=== PATIENT | female | born 1965 | race Caucasian/White ===

== ENCOUNTER → 2021-01-31 | Outpatient (CLI) | payer SELFPAY ==
[~2021-01-31] MED LIST: ADDERALL20 MG PO; AMPHETAMINE SAL20 M1 PO; ATIVAN0.5 MG PO; CELEXA20 M1 PO; CELEXA20 MG PO; CEPHALEXIN500 M1 PO; CLEOCIN HCL300 MG PO; LAMICTAL 100MG100 MG PO; NORCO 325 MG-51 TA1 PO; NORCO 325 MG-51 TAB PO; PERCOCET 325 MG1 TAB PO; SYNTHROID0.075 MG/T PO; SYNTHROID0.1 MG PO; VIBRAMYCIN100 MG PO; ZOFRAN ODT8 M1 PO
== END ==
LOC: LAB 11:51
DX: Z20.822 Contact with and (suspected) exposure to COVID-19 (principal)

== ENCOUNTER → 2021-04-02 | Outpatient (CLI) | payer OTHER | LOC: LAB 11:06 | DX: R76.8 Other specified abnormal immunological findings in serum (principal); Z86.19 Personal history of other infectious and parasitic diseases ==

== ENCOUNTER → 2021-04-16 | Outpatient (CLI) | payer OTHER | LOC: LAB 12:33 | DX: R19.7 Diarrhea, unspecified (principal) ==

== ENCOUNTER → 2021-04-17 | Outpatient (CLI) | payer OTHER ==
[~2021-04-17] MED LIST changes: +CELEXA 20MG20 MG/TA1 PO; +LEVOTHYROXIN0.088 MG PO; +PROTONIX TR40 M1 PO; +VISTARIL50 M1 PO
== END ==
LOC: LAB 08:39
DX: R19.7 Diarrhea, unspecified (principal)

== ENCOUNTER 2021-05-05 13:37 | Emergency (ER) | payer OTHER ==
[~2021-05-05] VITALS: Ht 162.6 cm; Wt 65.9 kg
[~2021-05-05 13:37] MED LIST changes: -CELEXA 20MG20 MG/TA1 PO; -LEVOTHYROXIN0.088 MG PO; -PROTONIX TR40 M1 PO; -VISTARIL50 M1 PO
[2021-05-05] MEDS ORDERED: VISTARIL50 M1 PO (14:05)
[2021-05-05] MEDS ORDERED: CELEXA 20MG20 MG/TA1 PO (14:05)
[2021-05-05] MEDS ORDERED: LEVOTHYROXIN0.088 MG PO (14:06)
[2021-05-05 14:18] LABS: BASO # 0.03 K/mm3 (0.02-0.10); EOS % 2.2 % (1.0-5.0); HEMATOCRIT 44.1 % (37.0-47.0); HEMOGLOBIN 15.5 g/dL (12.5-16.0); LYMPH# 2.11 K/mm3 (1.50-4.00); MEAN CELL VOLUME 86 fl (78-100); MEAN CORPUSCULAR HEMOGLOBIN 30 pg (27-31); MEAN CORPUSCULAR HGB CONC 35 g/dL (33-37); MEAN PLATELET VOLUME 10.1 fl (7.4-10.4); MONO # 0.49 K/mm3 (0.20-0.80); NEU # 6.39 K/mm3 (1.40-6.50); PLATELET COUNT 175 K/mm3 (130-400); RED BLOOD COUNT 5.11 M/mm3 (4.10-5.30); RED CELL DISTRIBUTION WIDTH 12.1 % (11.5-14.5); WHITE BLOOD COUNT 9.2 K/mm3 (4.8-10.8)
[2021-05-05 14:29] LABS: ALBUMIN 4.4 g/dL (3.5-5.0)
[2021-05-05 14:30] LABS: POTASSIUM 3.7 mmol/L (3.5-5.1)
[2021-05-05 14:31] LABS: CALCIUM 9.7 mg/dL (8.3-10.5)
[2021-05-05 14:32] LABS: TOTAL PROTEIN 7.8 g/dL (6.4-8.3)
[2021-05-05 15:21] LABS: URINE WBC 0 /hpf (0-3)
[2021-05-05 15:32] LABS: URINE APPEARANCE CLEAR; URINE BILIRUBIN NEGATIVE (NEGATIVE); URINE BLOOD TRACE (NEGATIVE); URINE COLOR YELLOW; URINE GLUCOSE NEGATIVE (NEGATIVE); URINE KETONE NEGATIVE (NEGATIVE); URINE LEUKOCYTE ESTERASE NEGATIVE (NEGATIVE); URINE MUCUS PRESENT (NOT PRESENT); URINE NITRATE NEGATIVE (NEGATIVE); URINE PROTEIN(semi-quant) TRACE (NEGATIVE); URINE UROBILINOGEN NORMAL (NORMAL)
[2021-05-05 15:39] LABS: TOTAL BILIRUBIN 0.4 mg/dL (0.2-1.2)
[2021-05-05 17:15] VITALS: BP 107/69
[2021-05-05] MEDS ORDERED: PROTONIX TR40 M1 PO ×2 (17:20→17:21)
== END 2021-05-05 17:32 | disposition home or self-care (01) ==
LOC: ED 13:37
PROVIDERS: Nurse Practitioner
DX: R19.5 Other fecal abnormalities (principal); R14.0 Abdominal distension (gaseous); Z90.710 Acquired absence of both cervix and uterus; Z90.49 Acquired absence of other specified parts of digestive tract
CPT/HCPCS: Q9967

== ENCOUNTER → 2021-05-25 | Day surgery (SDC) | payer OTHER ==
[~2021-05-25] MED LIST changes: +CELEXA 20MG20 MG/TA1 PO; +LEVOTHYROXIN0.088 MG PO; +PROTONIX TR40 M1 PO; +VISTARIL50 M1 PO
== END | disposition home or self-care (01) ==
LOC: MSO 08:46
DX: R10.32 Left lower quadrant pain (principal); K52.9 Noninfective gastroenteritis and colitis, unspecified; R19.5 Other fecal abnormalities; Z80.1 Family history of malignant neoplasm of trachea, bronchus and lung
CPT/HCPCS: 00813; J2704; J3010; J7120

== ENCOUNTER → 2022-03-30 | Outpatient (CLI) | payer OTHER | LOC: MAMMO 09:11 | DX: Z12.31 Encounter for screening mammogram for malignant neoplasm of breast (principal) ==

== ENCOUNTER 2022-04-13 18:59 | Emergency (ER) | payer OTHER ==
[~2022-04-13] VITALS: Ht 162.6 cm; Wt 63.2 kg
[2022-04-13 20:10] LABS: EOS # 0.08 K/mm3 (0.04-0.40); EOS % 0.8 % (1.0-5.0); HEMATOCRIT 48.2 % (37.0-47.0); HEMOGLOBIN 17.1 g/dL (12.5-16.0); MEAN CELL VOLUME 85 fl (78-100); MEAN CORPUSCULAR HEMOGLOBIN 30 pg (27-31); MEAN CORPUSCULAR HGB CONC 36 g/dL (33-37); MEAN PLATELET VOLUME 10.6 fl (7.4-10.4); MONO # 0.48 K/mm3 (0.20-0.80); NEU # 9.44 K/mm3 (1.40-6.50); PLATELET COUNT 161 K/mm3 (130-400); RED BLOOD COUNT 5.65 M/mm3 (4.10-5.30); RED CELL DISTRIBUTION WIDTH 11.7 % (11.5-14.5); WHITE BLOOD COUNT 10.6 K/mm3 (4.8-10.8)
[2022-04-13 20:25] LABS: ALBUMIN 4.8 g/dL (3.5-5.0); POTASSIUM 4.2 mmol/L (3.5-5.1); SODIUM 139 mmol/L (136-145)
[2022-04-13 20:27] LABS: CALCIUM 10.6 mg/dL (8.3-10.5)
[2022-04-13 20:28] LABS: GLUCOSE 127 mg/dL (65-105); TOTAL PROTEIN 8.5 g/dL (6.4-8.3)
[2022-04-13 20:29] LABS: CARBON DIOXIDE 20 mmol/L (22-29)
[2022-04-13 20:30] LABS: TOTAL BILIRUBIN 0.6 mg/dL (0.2-1.2)
[2022-04-13 20:33] LABS: AST-SGOT 70 U/L (5-34)
[2022-04-13 20:34] LABS: ALT/SGPT 78 U/L (0-55)
[2022-04-13 20:35] LABS: LIPASE 21 U/L (8-78)
[2022-04-13 20:46] LABS: TROPONIN-I < 0.030 ng/mL (<0.030)
[2022-04-13] MEDS ORDERED: ZOFRAN ODT4 MG PO (21:14)
[2022-04-13 21:38] VITALS: BP 119/88
== END 2022-04-13 21:39 | disposition home or self-care (01) ==
LOC: ED 18:59
PROVIDERS: Physician Assistant
DX: K52.9 Noninfective gastroenteritis and colitis, unspecified (principal); R74.8 Abnormal levels of other serum enzymes; Z20.822 Contact with and (suspected) exposure to COVID-19
CPT/HCPCS: J2405; J7030

== ENCOUNTER → 2022-06-03 | Outpatient (CLI) | payer OTHER ==
[~2022-06-03] MED LIST changes: +ZOFRAN ODT4 MG PO
[2022-06-03 11:11] LABS: ALBUMIN 4.3 g/dL (3.5-5.0); POTASSIUM 4.9 mmol/L (3.5-5.1)
[2022-06-03 11:12] LABS: CALCIUM 9.8 mg/dL (8.3-10.5)
[2022-06-03 11:13] LABS: TOTAL PROTEIN 7.8 g/dL (6.4-8.3)
[2022-06-03 11:14] LABS: BASO # 0.02 K/mm3 (0.02-0.10); EOS # 0.13 K/mm3 (0.04-0.40); EOS % 1.6 % (1.0-5.0); HEMATOCRIT 43.1 % (37.0-47.0); HEMOGLOBIN 14.2 g/dL (12.5-16.0); LYMPH# 1.78 K/mm3 (1.50-4.00); MEAN CELL VOLUME 90 fl (78-100); MEAN CORPUSCULAR HEMOGLOBIN 30 pg (27-31); MEAN CORPUSCULAR HGB CONC 33 g/dL (33-37); MEAN PLATELET VOLUME 10.2 fl (7.4-10.4); MONO # 0.47 K/mm3 (0.20-0.80); NEU # 5.58 K/mm3 (1.40-6.50); PLATELET COUNT 177 K/mm3 (130-400); RED BLOOD COUNT 4.78 M/mm3 (4.10-5.30); RED CELL DISTRIBUTION WIDTH 13.1 % (11.5-14.5)
[2022-06-03 11:15] LABS: TOTAL BILIRUBIN 0.2 mg/dL (0.2-1.2)
== END ==
LOC: LAB 10:32
PROVIDERS: Nurse Practitioner Family
DX: R07.81 Pleurodynia (principal); R53.81 Other malaise

== ENCOUNTER → 2022-06-10 | Outpatient (CLI) | payer OTHER ==
[2022-06-10 10:32] LABS: BASO # 0.04 K/mm3 (0.02-0.10); EOS # 0.18 K/mm3 (0.04-0.40); EOS % 2.4 % (1.0-5.0); HEMATOCRIT 42.5 % (37.0-47.0); HEMOGLOBIN 13.8 g/dL (12.5-16.0); LYMPH# 2.17 K/mm3 (1.50-4.00); MEAN CELL VOLUME 91 fl (78-100); MEAN CORPUSCULAR HEMOGLOBIN 30 pg (27-31); MEAN CORPUSCULAR HGB CONC 33 g/dL (33-37); MEAN PLATELET VOLUME 10.5 fl (7.4-10.4); MONO # 0.47 K/mm3 (0.20-0.80); NEU # 4.51 K/mm3 (1.40-6.50); PLATELET COUNT 187 K/mm3 (130-400); RED BLOOD COUNT 4.67 M/mm3 (4.10-5.30); WHITE BLOOD COUNT 7.4 K/mm3 (4.8-10.8)
[2022-06-10 10:36] LABS: ALBUMIN 4.1 g/dL (3.5-5.0); POTASSIUM 4.6 mmol/L (3.5-5.1)
[2022-06-10 10:37] LABS: CALCIUM 9.8 mg/dL (8.3-10.5)
[2022-06-10 10:39] LABS: TOTAL PROTEIN 7.4 g/dL (6.4-8.3)
[2022-06-10 10:40] LABS: TOTAL BILIRUBIN 0.6 mg/dL (0.2-1.2)
== END ==
LOC: LAB 10:11
PROVIDERS: Nurse Practitioner Family
DX: R06.00 Dyspnea, unspecified (principal)

== ENCOUNTER → 2023-03-04 | Outpatient (CLI) | payer OTHER ==
[~2023-03-04] MED LIST changes: +BENZONATATE100 M2 PO; +MORGIDOX 1X100100 MG PO; +RISPERDAL 0.5M0.5 MG PO
[2023-03-04 17:13] LABS: BASO # 0.05 K/mm3 (0.02-0.10); EOS # 0.17 K/mm3 (0.04-0.40); EOS % 2.1 % (1.0-5.0); HEMATOCRIT 46.9 % (37.0-47.0); HEMOGLOBIN 16.4 g/dL (12.5-16.0); LYMPH# 2.58 K/mm3 (1.50-4.00); MEAN CELL VOLUME 86 fl (78-100); MEAN CORPUSCULAR HEMOGLOBIN 30 pg (27-31); MEAN CORPUSCULAR HGB CONC 35 g/dL (33-37); MEAN PLATELET VOLUME 10.4 fl (7.4-10.4); MONO # 0.41 K/mm3 (0.20-0.80); NEU # 4.98 K/mm3 (1.40-6.50); PLATELET COUNT 198 K/mm3 (130-400); RED BLOOD COUNT 5.47 M/mm3 (4.10-5.30); RED CELL DISTRIBUTION WIDTH 11.7 % (11.5-14.5); WHITE BLOOD COUNT 8.2 K/mm3 (4.8-10.8)
[2023-03-04 17:21] LABS: ALBUMIN 4.8 g/dL (3.5-5.0)
[2023-03-04 17:22] LABS: CALCIUM 10.2 mg/dL (8.3-10.5)
[2023-03-04 17:24] LABS: TOTAL PROTEIN 8.8 g/dL (6.4-8.3)
[2023-03-04 17:25] LABS: TOTAL BILIRUBIN 0.3 mg/dL (0.2-1.2)
[2023-03-05 17:35] LABS: HEPATITIS C ANTIBODY Reactive (Negative)
== END ==
LOC: LAB 16:36
PROVIDERS: Nurse Practitioner Primary Care
DX: B18.2 Chronic viral hepatitis C (principal)

== ENCOUNTER → 2023-12-30 | Outpatient (CLI) | payer OTHER | LOC: RAD 13:49 | DX: M18.9 Osteoarthritis of first carpometacarpal joint, unspecified (principal); S61.451A Open bite of right hand, initial encounter; W55.01XA Bitten by cat, initial encounter ==